=== PATIENT | female | born 1980 | race Caucasian/White ===

== ENCOUNTER 2016-07-14 06:27 | Day surgery (SDC) | payer BC ==
[2016-07-07 08:09] LABS: HEMATOCRIT 39.5 % (36.0-48.0); HEMOGLOBIN 12.8 g/dL (12.0-16.0)
[2016-07-07 09:08] LABS: BUN (BLOOD UREA NITROGEN) 15 MG/DL (6-23); CALCIUM, SERUM 9.1 MG/DL (8.5-10.4); CHLORIDE, SERUM 106 MMOL/L (96-112); CO2 (CARBON DIOXIDE) 25 MMOL/L (24-34); CREATININE 0.87 MG/DL (0.55-1.02); GFR AFRICAN AMERICAN 101 ML/MIN (>=60); GFR NON AFRICAN AMERICAN 87 ML/MIN (>=60); GLUCOSE, SERUM 99 MG/DL (60-99); POTASSIUM, SERUM 4.1 MMOL/L (3.5-5.3); SODIUM, SERUM 141 MMOL/L (135-148)
--- NOTE | ~2016-07-14 | OP ---
Record Of Operation [facility] [address] [place]. [address] NAME: TODD ROCHA : 82 STATUS : REG [facility] PAT#: [id number] AGE: 35 ADM/REG DATE : 07/14/16 MR#: [id number] REPORT SERV DATE: 07/15/16 DICTATED BY: WARD FARLEY DATE: 07/15/16 REPORT STATUS : Draft TRANSCRIBED BY: MODL DATE: 07/15/16 DATE OF PROCEDURE: 07/14/2016 PREOPERATIVE DIAGNOSIS: Symptomatic mammary hypertrophy. POSTOPERATIVE DIAGNOSIS: Symptomatic mammary hypertrophy. PROCEDURE PERFORMED: Bilateral reduction mammoplasties. SURGEON: Ward Farley M.D. ANESTHESIA: General. ESTIMATED BLOOD LOSS: 100 mL. DETAILS OF PROCEDURE: After informed consent was obtained, the patient was taken to the operating room, placed in supine position on the OR table. General anesthesia was induced with endotracheal intubation. The patient's chest and surrounding areas were prepped and draped in usual sterile manner. She had been marked preoperatively for a yap-pattern reduction mammoplasty using inferior central pedicle. The breasts were infiltrated with local anesthetic solution and starting on the right side, incisions were made. The pedicle was de-epithelialized. Next, the medial, central, and lateral aspects of excess skin, subcutaneous tissue, and breast tissue were removed sharply and with electrocautery. The breast mound was then further debulked and modified for reduction removing 1076.6 g from the right side. The pedicle was then shaped and modified and resuspended to the chest wall with 2-0 and 3-0 PDS sutures. Hemostasis was then assured. A 15 round Bipin drain was brought out through a separate stab incision and sutured to the skin with 2-0 silk. Closure was then performed in a layered fashion with deep layer of 3-0 PDS followed by 3-0 and 4-0 Monocryl layered skin closure. Similar procedure performed on the left side. The left side was somewhat larger preoperatively, 1149.4 g was removed from the left. Shaping and suspension, drain placement, closure, etc, were performed similarly to the right side. Sterile dressings were then applied. She was placed in postop dressing and taken to PACU in stable condition. Sponge and needle counts were correct. CC/MODL Ward Farley M.D. / [id number] CC: Shantell Hoskins M.D.
[~2016-07-14 06:27] MED LIST: ADVIL PO; DIOV160 PO; SEASONIQUE OR; SPIRO50 PO; SYN.025B PO; TOPXL25 PO
== END 2016-07-14 23:59 | disposition home or self-care (01) ==
LOC: MSC 06:27
PROVIDERS: Plastic Surgery
PROC: 0HBV0ZZ Excision of Bilateral Breast, Open Approach (ICD-10-PCS; principal; 2016-07-14 07:45)
DX: N60.32 Fibrosclerosis of left breast (principal); N60.31 Fibrosclerosis of right breast; N62 Hypertrophy of breast; E03.9 Hypothyroidism, unspecified; I10 Essential (primary) hypertension; Z79.899 Other long term (current) drug therapy
CPT/HCPCS: 80048; 84703; 85014; 85018; 88305; 93005; A9270-GY; J0690; J2250; J2270; J2405; J2710; J3010